=== PATIENT | female | born 1985 | race Caucasian/White ===

== ENCOUNTER 2017-02-19 11:48 | Day surgery (SDC) | payer OTHER ==
[~2017-02-19 11:48] MED LIST: Buffered Lidocaine 0.9% SYRIN* 5 ML/SYR SYRINGE INTRADERM ONE
[2017-02-19] MEDS ORDERED: fentaNYL* 50 MCG/ML 2 ML VIAL (100 MCG VIAL) ONE (15:12)
[2017-02-19] MEDS ORDERED: Midazolam* 1 MG/ML 2 ML VIAL (2 MG) ONE ×2 (15:12→16:13)
[2017-02-19] MEDS ORDERED: Propofol* 10 MG/ML 20 ML BTL IV PUSH ONE ×2 (15:16→16:15)
[2017-02-19] MEDS ORDERED: Bupivacaine 0.25% SDV* 30 ML ONE (15:30)
[2017-02-19 16:39] VITALS: BP 121/84
--- NOTE | 2017-02-20 07:08 | OP ---
DATE OF OPERATION: 02/19/17 [facility] DATE OF : 83 SURGEON: Chucho Stephens MD. CHALK CUTTER: ALDAIR Joiner. ANESTHESIOLOGIST: Dr. Brizuela. ANESTHESIA: Local MAC. PRE-OP DIAGNOSES: 1. Left long middle finger volar ganglion cyst off of the tendon sheath. 2. Left carpal tunnel syndrome. POST-OP DIAGNOSES: 1. Left long middle finger volar ganglion cyst off of the tendon sheath. 2. Left carpal tunnel syndrome. OPERATIVE PROCEDURES: 1. Excision of left middle finger ganglion cyst. 2. Left open carpal tunnel release. INDICATIONS: Leah had a pea-sized mass over the volar aspect of the middle phalanx, just at the MP joint flexion crease. It was quite symptomatic to her. I talked to her about aspirating it versus excising it. She wanted it excised. She also wanted a carpal tunnel release as this was quite symptomatic to her. We talked about risks and benefits including risk of stiffness in the finger or flexor tendon adhesions. She wanted to proceed. ESTIMATED BLOOD LOSS: 2 mL. COMPLICATIONS: None. FINDINGS: As expected. DESCRIPTION OF PROCEDURE: Leah was seen in the preoperative holding area. The correct site, side, and procedure were identified. We came back to the operating room and the arm was prepped and draped in the usual fashion. A time- out was performed. I began by making a 2 to 3 cm incision in a standard location for an open carpal tunnel release. This was after the arm was exsanguinated and the tourniquet was inflated to 250 mmHg. Dissection was carried down through the palmar fascia. The transverse carpal ligament was released just off the radial aspect of the hook of the hamate. Direct visualization was obtained and tenotomy scissors were used to release the remainder of the transverse carpal ligament proximally and distally. Once there was absolutely no compression on the nerve, the wound was irrigated and the skin was closed with 3-0 PDS suture. I then came distally and made a V-shaped incision in Semaj type fashion over the MP joint flexion crease. Full-thickness flap was raised off the neurovascular bundle. The volar ganglion cyst off the tendon sheath was encountered. I cleaned up the edges and then excised it at its base. I used the Bovie to just cauterize this a bit. I then went ahead and released the A1 layne in an effort to keep the cyst from recurring. Everything looked good, so we went ahead and irrigated out the wound. Skin was closed with 3- 0 PDS suture. The wounds were dressed with Xeroform, 4x4s, sterile Webril, and an Jayce bandage. She was then woken up and taken to the recovery room in stable condition. [id number]/CPS #: [id number] BRITTANY
== END 2017-02-19 17:00 | disposition home or self-care (01) ==
LOC: OREAST 11:48
PROVIDERS: ATTEND Orthopaedic Surgery Hand Surgery
DX: M67.442 Ganglion, left hand (principal); G56.02 Carpal tunnel syndrome, left upper limb; K58.9 Irritable bowel syndrome, unspecified; R42 Dizziness and giddiness
CPT/HCPCS: 81025; 88304; J2250; J2704; J3010